=== PATIENT | male | born 1945 | race Caucasian/White ===

== ENCOUNTER 2016-10-13 11:56 | Inpatient (IN) | payer BC ==
--- NOTE | ~2016-10-13 | CN ---
Consultation Report [facility] [address] [place]. [address] NAME: Eli MIKE : 45 STATUS : ADM IN PAT#: [id number] AGE: 71 ADM/REG DATE : 10/13/16 MR#: [id number] REPORT SERV DATE: 10/13/16 DICTATED BY: DATE: REPORT STATUS : Draft TRANSCRIBED BY: MODL DATE: 10/13/16 NEUROLOGY CONSULTATION DATE OF CONSULTATION: REASON FOR CONSULT: Stroke. HISTORY OF PRESENT ILLNESS: This is a 71-year-old male who presented to [facility] secondary to right-sided weakness and stroke with the patient's family reported to the nursing staff that the patient was last noted to be normal on 10/12/2016, prior to going to bed. The patient's found the patient wake up with aphasia as well as right-sided weakness. The patient was subsequently brought to the hospital secondary to unclear time of onset, possibly greater than 4.5 hours. TPA was not offered. The patient was noted to have no significant changes in mental status or functional status after hospital admission as well as the patient noted to have failed dysphagia screening in the emergency room. The patient was noted to have a history of prior stroke in 2013. The patient was seen while in the hospital by fire management technician with concern for possible atypical atrial flutter. At that time the patient was on anticoagulation with Coumadin. The patient, prior to the hospitalization, was not noted to have any history of fever, chills, nausea, vomiting, chest pain, or shortness of breath. PAST MEDICAL HISTORY: The patient's past medical history is significant for hypertension, hypercholesterolemia, diabetes, stroke, ulcers, and gout with the patient at one point was noted to be on Coumadin anticoagulation for unclear reason but possibly for atypical atrial flutter. It is unclear when patient stopped the Coumadin. ALLERGIES: THE PATIENT REPORTS NO KNOWN DRUG ALLERGIES. HOME MEDICATIONS: The patient's home medications consist of aspirin; Lipitor; Coreg; vitamin D3; Lasix; lisinopril; Cozaar; metformin; potassium; and vitamin E. FAMILY HISTORY: No history of coronary artery disease was otherwise reported. SOCIAL HISTORY: The patient, in 2013, was noted to have continued tobacco usage. It is unclear whether or not the patient continues to smoke right now. No reports of alcohol or illicit drug usage was noted. REVIEW OF SYSTEMS: Unfortunately is unable to be obtained secondary to the patient's current aphasic state. PHYSICAL EXAMINATION: VITAL SIGNS: The patient, since the hospitalization, was noted to have vital signs with T- max of 97.2, heart rate of 84 to 90, respirations of 14, and blood pressure of 162 to 168 over 72 to 90. Consultation Report [place] [id number] [place]. [address] NAME: Eli MIKE : 45 STATUS : ADM IN [facility]#: [id number] AGE: 71 ADM/REG DATE : 10/13/16 MR#: [id number] REPORT SERV DATE: 10/13/16 DICTATED BY: DATE: REPORT STATUS : Draft TRANSCRIBED BY: MODL DATE: 10/13/16 GENERAL: The patient is well developed, well nourished, in no acute distress. CARDIOVASCULAR: Regular rate and rhythm. No carotid bruits were otherwise auscultated. PULMONARY: Cross breath sounds were noted with the patient noted to have mild wheezing during the evaluation in bilateral lung restrepo. NEUROLOGICAL: Generally, the patient is alert. The patient was noted to be nonverbal. The patient will follow commands with visual cue but is unable to otherwise follow commands with verbal stimulation, was noted to have concern of consists of expressive as well as receptive aphasia, was noted to be mute on evaluation. Cranial nerves 2 through 12, pupils equal, round, and reactive to light. Left gaze preference was noted at the time of evaluation with some horizontal eye movement on oculocephalic maneuver. The patient demonstrated blink-to- threat response in stimulation presented to the left visual field but not to stimulation presented to the right visual field. The patient, in addition, was also noted to have right sided facial weakness with decreased nasolabial fold. The patient does demonstrate a flaccid right upper extremity with no spontaneous movement. Was noted to have spontaneous and purposeful movement in the left upper extremity. The patient is able to maintain left upper extremity against gravity for 10 seconds and is able to maintain left lower extremity against gravity for 5 seconds. The patient demonstrated no spontaneous movement in the right lower extremity. The patient was noted to have extensor response to noxious stimulation in the right upper extremity. The patient does demonstrate mild increased tone in the right upper extremity as well as hyperreflexia with 3+ reflex in the right upper extremity and 2+ in bilateral lower extremity. Upgoing toe on the left plantar reflex as well; 2+ reflex in the left upper extremity at the time of evaluation. Cerebellar examination and gait was unable to be evaluated secondary to the patient's difficulty following commands as well as weakness. LABORATORY STUDY: Demonstrates sodium 140, potassium 3.8, chloride 105, bicarb 31, BUN of 21, creatinine 1.20, glucose 159, and calcium of 9.89. White blood cell count of 11.7, hemoglobin of 13.9, hematocrit of 41.4, and platelet count of 225. CT scan of the brain demonstrated subtle signs of left MCA stroke with decreased humphries-white differentiation as well as increased hypoattenuation in the left MCA territory. IMPRESSION: Left-sided hemiplegia as well as aphasia. NIH stroke scale of 21. The patient was found by family members this morning with the symptoms along with the patient last noted to be normal occurring on 10/12/2016, prior to going to bed. Alteplase was not offered secondary to time of onset greater than 4.5 hours as well as mildly unclear time of onset. MRI of the brain without contrast will be obtained as well as stroke workup. We will obtain PT, OT, and Speech Therapy secondary to the patient's failed dysphagia screening. We will also place the patient on n.p.o. until speech therapy evaluation. Per medical, question of history of atrial flutter and may have to consider resuming anticoagulation after hospitalization. RECOMMENDATIONS: 1. N.p.o. 2. Aspirin per rectal for now. 3. PT/OT. Consultation Report [address] [place]. [address] NAME: RASHIDEli Darin : 45 STATUS : ADM IN [facility]#: [id number] AGE: 71 ADM/REG DATE : 10/13/16 MR#: [id number] REPORT SERV DATE: 10/13/16 DICTATED BY: DATE: REPORT STATUS : Draft TRANSCRIBED BY: MODL DATE: 10/13/16 4. MRI of the brain without contrast. 5. Speech Therapy consult. 6. Echocardiogram. 7. MRA of the head and neck. 8. We will also obtain fasting lipid panel and hemoglobin A1c. 9. May consider Cardiology reevaluation. With the patient's history of atrial flutter, may have to consider anticoagulation in the future. [facility]/MODL Mario Meeks MD / [id number] CC: Elizabeth Gutierrez M.D.
--- NOTE | ~2016-10-13 | HP ---
History And Physical [place] [address] [facility] [place]. [address] NAME: Eli MIKE : 45 STATUS : ADM IN [facility]#: [id number] AGE: 71 ADM/REG DATE : 10/13/16 MR#: [id number] REPORT SERV DATE: 10/13/16 DICTATED BY: ELYSSA CHAPPELL DATE: 10/13/16 REPORT STATUS : Draft TRANSCRIBED BY: MODL DATE: 10/13/16 DATE OF ADMISSION: 10/13/2016 IDENTIFYING DATA: A 71-year-old white male whose PCP is Dr. William Chou, software validation engineer is Dr. Amarjit Merchant. CHIEF COMPLAINT: Stroke. HISTORY OF PRESENT ILLNESS: This history of present illness is obtained by talking with the ER staff, specifically Dr. Sánchez, also with the patient's and their three children at the bedside. The patient was not able to speak at all, review of [employer] and Dr. Jerry's Smooth Move as well and the current ER paper chart. The patient's states, he was normal last night when he went to bed around 10:00 p.m., around 08:00 a.m. this morning, she found him on the floor next to the couch, where he had slept. She states, he usually sleeps there. He could move his right side and he has not spoken since she found him. They brought him to the emergency room at 1045 hours today. I was contacted at 1220 hours and I was asked to see him and I came directly down to see him. The patient has had no prior strokes. The family states that, he was on Eliquis as an anticoagulant until 05/2016, because it was costing him 400 dollars a month. They described that his doctors recommended he go to Coumadin, but he refused because he did not want to go to have the lab work done. He is normally very active, he just mowed his lawn. Family does describe that he has some spells occasionally when he gets suddenly nauseated, diaphoretic, and he will pass out, that will happen every once a while over the last few years, but he will awaken quickly, and will be right back to his usual baseline. REVIEW OF SYSTEMS: On review of systems, he has a chronic stable cough. He has had nausea eight days ago. He has had diarrhea for the last two days. He has occasional nocturia. No history of fever, chest pain, shortness of breath, abdominal pain, vomiting, rectal bleeding, melena, dysuria, urinary hesitancy, peripheral edema, rash, headaches, anorexia, or weight changes. PAST MEDICAL HISTORY: No known drug allergies. They denied any history of asthma, seizure, peptic ulcer, biliary tract disease, liver disease, chronic kidney disease, kidney stones, thyroid disease, cancer, or sleep apnea. He has coronary disease and he underwent coronary artery bypass grafting in 2013. The last echo that I could find for the patient was on 06/11/2016 showing left atrial size 3.9 cm, left ventricular ejection fraction 35% to 40%, moderate aortic and tricuspid insufficiency. He has a history of hypertension. He has had diabetes for about three years. He had a history of claudication. He has a history of COPD. HOME MEDICATIONS: Aspirin 81 mg daily, Lipitor 40 mg daily, Coreg 25 mg b.i.d., vitamin D History And Physical [address] [address] NAME: Eli MIKE : 45 STATUS : ADM IN [facility]#: [id number] AGE: 71 ADM/REG DATE : 10/13/16 MR#: [id number] REPORT SERV DATE: 10/13/16 DICTATED BY: ELYSSA CHAPPELL DATE: 10/13/16 REPORT STATUS : Draft TRANSCRIBED BY: LUCA DATE: 10/13/16 5000 units daily, Lasix 40 mg daily, lisinopril 40 mg b.i.d., Cozaar 100 mg daily, metformin 500 mg daily, KCl 20 mEq daily, vitamin E 1000 units daily. SURGICAL HISTORY: Coronary bypass is his only surgical history. SOCIAL HISTORY: He smokes a pack per day still. No significant alcohol intake history. He is . 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 He walks without any assistive device. Still mows the lawn. FAMILY HISTORY: Mother had heart disease and rheumatoid arthritis. Father with heart disease. Siblings also with heart disease. DIAGNOSTIC DATA: Chest x-ray reveals hyperexpanded lung restrepo, consider it is a portable chest film. He has cardiomegaly, evidence of previous sternotomy. Otherwise the lung restrepo and bony structures are normal per my interpretation. EKG done today at 1055 hours reveals atrial fibrillation with controlled ventricular response rate. The patient has inverted T-waves in II, III, and AVF. Echocardiogram of 06/11/2016 as mentioned above. At that time, his left atrium of 3.9 cm, left ventricular ejection fraction between 30% and 40%. He had septal hypokinesis, mild apical-septal akinesis, moderate aortic regurgitation, mild mitral regurgitation, moderate tricuspid regurgitation, thickened aortic valve, but without any stenosis. Sodium 140, potassium 3.8, chloride 105, CO2 is 31, BUN 21, creatinine 1.2, glucose 159, calcium 9.8. White count 11.7, hemoglobin is 13.9, platelets 225,000. Protime is 15.1, INR 1.2, PTT is 30.2. CT scan of the brain without contrast read by the radiologist to show early left MCA territory infarction in the left temporal area with no mass or hemorrhage PHYSICAL EXAMINATION: VITAL SIGNS: Temp is 98, pulse 80, respirations 16, blood pressure 160/92, O2 saturation is currently 95% on 2 L. GENERAL: A well-developed, older male, who appears lethargic. HEENT: Head is atraumatic. His eyes are predominantly to the left, I never did see him move past the midline to the right. Pupils equal, round, and reactive to light. The sclera are normal. Ear canals and TMs unremarkable with No inflammatory changes noted on the external ears. Nose, noninflamed externally. Septum midline. Nares patent. Mouth is difficult to examine because he barely will open it, but appears moist. I could not really see if he has a gag. It sounds like he has difficulty clearing his oral secretions currently. NECK: Supple. No lymph node or thyroid enlargement. The carotids have good pulses. No bruits. LUNGS: Good clear air flow bilaterally with normal respiratory effort. HEART: Irregularly irregular without gallop, click, murmur, or rub. ABDOMEN: Bowel sounds are positive. Soft, nondistended, no tenderness elicited. No mass. No organomegaly. No bruits. EXTREMITIES: Warm, good pulses. No clubbing, no cyanosis, no edema. No actively inflamed skin or joints. NEUROLOGIC: He is lethargic with verbal and tactile stimulation. He will transiently open History And Physical [place] [address] [place]. [address] NAME: Eli MIKE : 45 STATUS : ADM IN PAT#: [id number] AGE: 71 ADM/REG DATE : 10/13/16 MR#: [id number] REPORT SERV DATE: 10/13/16 DICTATED BY: ELYSSA CHAPPELL DATE: 10/13/16 REPORT STATUS : Draft TRANSCRIBED BY: MODL DATE: 10/13/16 his eyes. He did follow commands to take deep breath and a squeeze with his left hand and moved his left foot by plantar flexion and dorsiflexion when I asked him to. He was not able to follow simple commands when I asked him to raise his left thumb nor did he follow any commands when I asked him to open his mouth or stick out his tongue. His gaze is preferentially to the left. He appears to have a right homonymous hemianopsia as he has no reaction to a threat maneuver on the right side, but does blink on the left side. His motor strength on the left arm and left leg, 4/5. Right side, there is increased tone in the right arm and leg. He does not have any spontaneous movement in his right arm or right leg that I can see. He has a positive Babinski on the right side. There is no clonus. Cranial nerves are mostly normal other than the predominant eye gaze to the left and apparent homonymous hemianopia on the right side. ASSESSMENT: 1. Acute ischemic left temporal/middle cerebral artery stroke likely embolic with current dense right hemiplegia, apparent right homonymous hemianopsia, aphagia, suspected dysphagia, and decreased level of consciousness. 2. Chronic atrial fibrillation, off the Eliquis since 05/2016 because of the cost. 3. Inferior ischemic changes on his EKG with T-wave inversions. 4. Leukocytosis. 5. Diabetes mellitus type 2 for three years. 6. Hypertension. 7. History of chronic obstructive pulmonary disease. 8. History of peripheral arterial disease with claudication. PLAN: Admit the patient to the stroke unit. He is far too late to be a candidate for tPA. MRI, MRA of the brain, MRA of the neck. Get an echocardiogram. We will consult Neurology. We will ask PT/OT and Speech to see him. We are going to take the Valderrama catheter out that the ER placed, because I want to reduce his risk of infection. We will check a series of cardiac enzymes. His and three children are updated at bedside at this time. I told him it is likely that if he does not improve with his swallowing ability in the near future, he may need a feeding tube placed and long-term rehab. ALOK/LUCA Elyssa Chappell M.D. / [id number] CC: Thierry Henderson M.D.
--- NOTE | ~2016-10-13 | DS ---
Discharge Summary [facility] [address] [facility]. [address] NAME: Eli MIKE : 45 STATUS : DIS IN PAT#: [id number] AGE: 71 ADM/REG DATE : 10/13/16 MR#: [id number] REPORT SERV DATE: 10/16/16 DICTATED BY: ELYSSA PATEL DATE: 10/15/16 REPORT STATUS : Draft TRANSCRIBED BY: MODL DATE: 10/15/16 ADMISSION DATE: 10/13/2016 DISCHARGE DATE: 10/15/2016 PCP: Dr. William Chou. MILL TENDER SECOND OPERATOR: Dr. Merchant. CONSULTING PHYSICIAN: Dr. Aneudy Daniel for Cardiology, Dr. Daniel Meeks for Neurology. FINAL DIAGNOSES: 1. Acute left middle cerebral artery CVA with dense right hemiplegia. 2. Atrial fibrillation with sinus pauses. 3. Ischemic cardiomyopathy with ejection fraction of 30% to 40%. 4. Coronary artery disease with history of coronary artery bypass grafting. 5. Peripheral artery disease with history of claudication. 6. Hypertension. 7. Diabetes. 8. Chronic obstructive pulmonary disease. 9. Noncompliance. 10.Tobacco abuse. DIAGNOSTIC EXAM: CAT scan of the brain without showing early left MCA territory infarct with low density and loss of san-white junction in some occasions, no current hemorrhage or significant mass effect currently. Chest x-ray showing stable cardiomegaly with prior CABG, no acute process. HOSPITAL COURSE: Please refer to the H and P done by Dr. Chappell dated on 10/13/2016. Briefly, this is a 71-year-old male, who comes in for inability to speak. The patient has a history of atrial fibrillation and is suppose to be on anticoagulation, but does not want to take it. The patient was found on the day of admission, could not move his right side and unable to speak the patient was then brought to the emergency room and got a CAT scan, which shows the above findings. We got Neurology involved and also Cardiology as the telemetry was showing sinus pauses and sometimes rapid atrial fibrillation. The patient was placed on Cardizem drip and given aspirin per rectum. We got PT involved and also Speech and Speech noted that the patient is a very high risk for aspiration and recommended alternative means of nutrition. I discussed this with the family and the family said that the patient does not want to live like this. They said that the patient is a DO NOT RESUSCITATE/DO NOT INTUBATE, no PEG feeding and they would just make him eat and take his medications through the mouth. We got hospice involved [facility] and they are willing to follow up the patient when they go home today. The patient will be discharged to hospice this afternoon. Further management in the care of hospice. RLY/MODL Discharge Summary [address] [address] NAME: Eli MIKE Darin : 45 STATUS : DIS IN PAT#: [id number] AGE: 71 ADM/REG DATE : 10/13/16 MR#: [id number] REPORT SERV DATE: 10/16/16 DICTATED BY: ELYSSA PATEL. DATE: 10/15/16 REPORT STATUS : Draft TRANSCRIBED BY: LUCA DATE: 10/15/16 Elyssa Patel M.D. / [id number] CC: Thierry Stone SCOTT
--- NOTE | ~2016-10-13 | CN ---
Consultation Report [facility] [address] [place]. [address] NAME: Eli MIKE : 45 STATUS : ADM [facility]#: [id number] AGE: 71 ADM/REG DATE : 10/13/16 MR#: [id number] REPORT SERV DATE: 10/14/16 DICTATED BY: ANEUDY GAMA DATE: 10/13/16 REPORT STATUS : Draft TRANSCRIBED BY: MODL DATE: 10/13/16 CARDIOVASCULAR CONSULTATION DATE OF CONSULTATION: 10/13/2016 INDICATION: Chronic atrial fibrillation, stroke, and bradycardia. HISTORY OF PRESENT ILLNESS: Mr. Mike is a 71-year-old patient of my partner, Dr. Amarjit Merchant in [place]. He has a longstanding history of coronary artery disease with previous bypass surgery and an ischemic cardiomyopathy. EF by variable measurements has been between 30% and 40%. Echocardiogram demonstrated EF 30% recently. The patient was seen in July of [address] Merchant for discussion of a prophylactic defibrillator. The patient declined defibrillator placement at that time. In addition, the patient had been noncompliant with his Eliquis medication and presented to clinic with aspirin alone. He was placed on Coumadin but again was noncompliant. He presents to [facility] with a large stroke. Currently right hemiplegia and severe expressive aphasia. He was noted to be in atrial fibrillation on shelter monitor with several seconds up to one 6 second pause noted. PAST MEDICAL HISTORY: 1. Coronary artery disease, status post coronary artery bypass grafting. 2. Type 2 diabetes. 3. Hypertension. 4. Hypercholesterolemia. 5. Paroxysmal atrial fibrillation. 6. Ischemic cardiomyopathy. ALLERGIES: NO KNOWN DRUG ALLERGIES. MEDICATIONS: At home include aspirin 81 mg daily, Lipitor 40 mg daily, Coreg 25 mg twice a day, vitamin D, Lasix 40 mg daily, Prinivil 40 mg a day, Cozaar 100 mg daily, metformin, potassium, and vitamin E. SOCIAL HISTORY: He is a former smoker. He does not drink alcohol. FAMILY HISTORY: There is no family history of early coronary artery disease. REVIEW OF SYSTEMS: A complete review of systems was obtained, which is negative in detail except as mentioned above in the HPI. PHYSICAL EXAMINATION: VITAL SIGNS: Blood pressure 130/70, heart rate of 70, respiratory rate of 14. Consultation Report [facility] [address] [place]. [address] NAME: Eli MIKE : 45 STATUS : ADM IN PAT#: [id number] AGE: 71 ADM/REG DATE : 10/13/16 MR#: [id number] REPORT SERV DATE: 10/14/16 DICTATED BY: ANEUDY GAMA DATE: 10/13/16 REPORT STATUS : Draft TRANSCRIBED BY: LUCA DATE: 10/13/16 GENERAL: Comfortable in no acute distress. HEENT: Anicteric. No xanthelasma. Lips without cyanosis. NECK: No JVD. Carotids 2+ and symmetric. No carotid bruits. LUNGS: CTA bilaterally. No wheezes or rhonchi. No accessory muscle use. COR: Irregularly irregular. Normal S1, S2. ABD: Soft, nontender, nondistended. Normal bowel sounds. No abdominal bruits. EXT: No clubbing, cyanosis or edema 2+ and symmetric distal pulses. SKIN: Warm. Dry. No venous stasis changes. MS: No kyphosis. NEURO/PSYCH: The patient is somnolent but arousable. An obvious right hemiplegia is noted. No verbal output is noted. No anxiety or depression. EKG: A 12-lead EKG shows atrial fibrillation, rate of 76 beats per minute. Left ventricular hypertrophy with strain pattern is noted. Telemetry strips show up to a 6 second pause noted. IMPRESSION: This is a 71-year-old man with chronic atrial fibrillation, noncompliant with both Eliquis and Coumadin anticoagulation who presents with a large stroke. He was considered for a prophylactic defibrillator as an outpatient but declined. He now presents after a large stroke. I think anticoagulation with Coumadin or a novel oral anticoagulant would be appropriate. He did have evidence of a pause on telemetry. He is in chronic atrial fibrillation. He was on Coreg 25 mg twice a day and was taken off this medication. I am not sure about the most appropriate level of aggressiveness with this patient who has been noncompliant and refusing therapies in the past. I am not sure whether a defibrillator or pacemaker is appropriate given his overall prognosis after his stroke. For now, I have recommended discontinuing his Coreg. We will observe him on shelter monitor. Further discussions with the patient and especially the patient's family regarding DNR status and level of care. CORNELL/LUCA Aneuyd Gama M.D. / [id number] CC: Elizabeth Gutierrez M.D.
[2016-10-13 11:01] LABS: BASOPHILS 0.3 %; BASOPHILS ABSOLUTE 0.03 10/3/uL (0.0-0.16); EOSINOPHILS 1.4 %; EOSINOPHILS ABSOLUTE 0.16 10/3/uL (0.0-0.53); HEMATOCRIT 41.4 % (40.0-51.0); HEMOGLOBIN 13.9 g/dL (13.6-17.8); IMMATURE GRANULOCYTES 0.3 %; IMMATURE GRANULOCYTES ABSOLUTE 0.04 10/3/uL (0.0-0.11); LYMPHOCYTES ABSOLUTE 1.76 10/3/uL (0.67-4.30); MEAN CORPUS HGB CONC 33.6 g/dL (32.0-36.0); MEAN CORPUSCULAR HEMOGLOB 31.4 pg (26.0-34.0); MEAN PLATELET VOLUME 9.7 fL (9.2-13.0); MONOCYTES 4.9 %; MONOCYTES ABSOLUTE 0.58 10/3/uL (0.21-1.20); NEUTROPHILS 78.1 %; NEUTROPHILS ABSOLUTE 9.16 10/3/uL (2.02-8.40); PLATELET COUNT 225 10/3/uL (150-400); RBC DISTRIBUTION WIDTH 14.3 % (12.0-16.0); RED CELL COUNT 4.43 10/6/uL (4.7-6.1); WHITE BLOOD CELLS 11.7 10/3/uL (4.5-10.5)
[2016-10-13 11:02] LABS: ER CBC TAT 0 Hrs 03 MinsNP; MANUAL DIFF NO %; MEAN CORPUSCULAR VOLUME 93.5 fL (80-100)
[2016-10-13 11:09] LABS: INTERNATIONAL NORMAL RATI 1.2 UNITS (-); PARTIAL THROMBO TIME 30.2 SEC (22.5-37.2)
[2016-10-13 11:10] LABS: PROTIME (NOT ORD) 15.1 SEC (12.0-14.5)
[2016-10-13 11:13] LABS: BUN (BLOOD UREA NITROGEN) 21 MG/DL (6-23); CALCIUM, SERUM 9.8 MG/DL (8.5-10.4); CHLORIDE, SERUM 105 MMOL/L (96-112); CO2 (CARBON DIOXIDE) 31 MMOL/L (24-34); GFR AFRICAN AMERICAN 70 ML/MIN (>=60); GFR NON AFRICAN AMERICAN 60 ML/MIN (>=60); GLUCOSE, SERUM 159 MG/DL (60-99); POTASSIUM, SERUM 3.8 MMOL/L (3.5-5.3); SODIUM, SERUM 140 MMOL/L (135-148)
[~2016-10-13 11:56] MED LIST: ASAB PO; COREG12 PO; COUMADIN3 MG PO; LIPITOR10 PO; LIPITOR40 PO; LISINOPRIL40 MG PO; LOP25 PO; NITROSTAT0.4 MG SL; PACERONE200 MG PO; PERCOCET1 TA4 PO; PRIN20 PO; SPIRIVA INH; T PO; VITC500 PO
[2016-10-13] MEDS ORDERED: COREG25 PO (12:05)
[2016-10-13] MEDS ORDERED: GLUCPH PO (12:05)
[2016-10-13] MEDS ORDERED: COZAAR100 MG PO (12:06)
[2016-10-13] MEDS ORDERED: L40 PO (12:06)
[2016-10-13] MEDS ORDERED: LISINOPRIL40 MG PO (12:07)
[2016-10-13] MEDS ORDERED: LIPITOR40 PO (12:07)
[2016-10-13] MEDS ORDERED: ASAB PO (12:08)
[2016-10-13] MEDS ORDERED: VITE1000 PO (12:08)
[2016-10-13] MEDS ORDERED: KLOR-CON M2020 MEQ PO (12:09)
[2016-10-13] MEDS ORDERED: VITAMIN D31000 UNIT PO (12:09)
[2016-10-13 15:39] LABS: ALBUMIN 3.9 G/DL (3.5-5.0); ALKALINE PHOSPHATASE 67 U/L (45-117); CHOL/HDL RATIO(NOT ORDER) 2.7 (0-5); CHOLESTEROL 132 MG/DL (< 200); CK-MB 1.4 NG/ML; CPK 83 U/L (0-200); DIRECT BILIRUBIN 0.2 MG/DL (0.0-0.4); HDL CHOLESTEROL 49 MG/DL (> 39); INDIRECT BILIRUBIN(NOT ORDER) 0.6 MG/DL (0.1-0.9); LDL CHOLESTEROL 67 MG/DL (< 130); NON-HDL CHOLESTEROL 83 MG/DL (< 160); SGOT(AST) 12 U/L (5-40); SGPT(ALT) 19 U/L (5-65); TOTAL BILIRUBIN 0.8 MG/DL (0-1.2); TOTAL PROTEIN 6.8 G/DL (6.0-8.5); TRIGLYCERIDE 80 MG/DL (< 150); TROPONIN I <0.02 NG/ML (<0.05)
[2016-10-13 21:44] LABS: BUN (BLOOD UREA NITROGEN) 18 MG/DL (6-23); CALCIUM, SERUM 9.4 MG/DL (8.5-10.4); CHLORIDE, SERUM 104 MMOL/L (96-112); CREATININE 0.91 MG/DL (0.70-1.30); GFR AFRICAN AMERICAN 98 ML/MIN (>=60); GFR NON AFRICAN AMERICAN 84 ML/MIN (>=60); GLUCOSE, SERUM 151 MG/DL (60-99); SODIUM, SERUM 140 MMOL/L (135-148)
[2016-10-13 21:45] LABS: CO2 (CARBON DIOXIDE) 24 MMOL/L (24-34)
[2016-10-13 22:03] LABS: CPK 79 U/L (0-200); TROPONIN I <0.02 NG/ML (<0.05)
[2016-10-13 22:04] LABS: CK-MB 1.1 NG/ML
[2016-10-14 05:48] LABS: ASCORBIC ACID (UR NOT ORDER) NEG (NEG); BILIRUBIN, URINE NEGATIVE (NEG); KETONE, URINE TRACE MG/DL (NEG); LEUKOCYTE ESTERASE(NOT OR NEG (NEG); WBC (NOT ORDERED) (RFLEX) 4 (0-5)
[2016-10-14 06:41] LABS: BASOPHILS 0.1 %; BASOPHILS ABSOLUTE 0.02 10/3/uL (0.0-0.16); EOSINOPHILS 0.5 %; EOSINOPHILS ABSOLUTE 0.07 10/3/uL (0.0-0.53); HEMATOCRIT 38.8 % (40.0-51.0); HEMOGLOBIN 13.1 g/dL (13.6-17.8); IMMATURE GRANULOCYTES 0.2 %; IMMATURE GRANULOCYTES ABSOLUTE 0.03 10/3/uL (0.0-0.11); LYMPHOCYTES 14.1 %; LYMPHOCYTES ABSOLUTE 1.92 10/3/uL (0.67-4.30); MEAN CORPUS HGB CONC 33.8 g/dL (32.0-36.0); MEAN CORPUSCULAR HEMOGLOB 31.3 pg (26.0-34.0); MEAN CORPUSCULAR VOLUME 92.8 fL (80-100); MEAN PLATELET VOLUME 9.8 fL (9.2-13.0); MONOCYTES 8.3 %; MONOCYTES ABSOLUTE 1.13 10/3/uL (0.21-1.20); NEUTROPHILS 76.8 %; NEUTROPHILS ABSOLUTE 10.44 10/3/uL (2.02-8.40); PLATELET COUNT 225 10/3/uL (150-400); RBC DISTRIBUTION WIDTH 14.2 % (12.0-16.0); RED CELL COUNT 4.18 10/6/uL (4.7-6.1); WHITE BLOOD CELLS 13.6 10/3/uL (4.5-10.5)
[2016-10-14 06:47] LABS: BUN (BLOOD UREA NITROGEN) 17 MG/DL (6-23); CALCIUM, SERUM 9.3 MG/DL (8.5-10.4); CHLORIDE, SERUM 105 MMOL/L (96-112); CHOL/HDL RATIO(NOT ORDER) 3.1 (0-5); CHOLESTEROL 136 MG/DL (< 200); CO2 (CARBON DIOXIDE) 25 MMOL/L (24-34); CPK 100 U/L (0-200); CREATININE 0.98 MG/DL (0.70-1.30); GFR AFRICAN AMERICAN 90 ML/MIN (>=60); GFR NON AFRICAN AMERICAN 77 ML/MIN (>=60); GLUCOSE, SERUM 160 MG/DL (60-99); HDL CHOLESTEROL 44 MG/DL (> 39); LDL CHOLESTEROL 70 MG/DL (< 130); MANUAL DIFF NO %; NON-HDL CHOLESTEROL 92 MG/DL (< 160); POTASSIUM, SERUM 3.8 MMOL/L (3.5-5.3); SODIUM, SERUM 141 MMOL/L (135-148); TRIGLYCERIDE 110 MG/DL (< 150); TROPONIN I <0.02 NG/ML (<0.05)
[2016-10-14 15:47] LABS: TROPONIN I <0.02 NG/ML (<0.05)
[2016-10-14 15:50] LABS: CK-MB 0.9 NG/ML; CPK 126 U/L (0-200)
[2016-10-15 06:00] LABS: BASOPHILS 0 %; EOSINOPHILS 0 %; HEMATOCRIT 39.5 % (40.0-51.0); HEMOGLOBIN 13.4 g/dL (13.6-17.8); IMMATURE GRANULOCYTES 0.3 %; IMMATURE GRANULOCYTES ABSOLUTE 0.04 10/3/uL (0.0-0.11); LYMPHOCYTES 5.5 %; LYMPHOCYTES ABSOLUTE 0.78 10/3/uL (0.67-4.30); MEAN CORPUS HGB CONC 33.9 g/dL (32.0-36.0); MEAN CORPUSCULAR HEMOGLOB 31.3 pg (26.0-34.0); MEAN CORPUSCULAR VOLUME 92.3 fL (80-100); MEAN PLATELET VOLUME 10.1 fL (9.2-13.0); MONOCYTES 7.6 %; MONOCYTES ABSOLUTE 1.09 10/3/uL (0.21-1.20); NEUTROPHILS 86.6 %; NEUTROPHILS ABSOLUTE 12.39 10/3/uL (2.02-8.40); PLATELET COUNT 235 10/3/uL (150-400); RBC DISTRIBUTION WIDTH 14.4 % (12.0-16.0); RED CELL COUNT 4.28 10/6/uL (4.7-6.1); WHITE BLOOD CELLS 14.3 10/3/uL (4.5-10.5)
[2016-10-15 06:05] LABS: MANUAL DIFF NO %
== END 2016-10-15 18:09 | DRG 65 ==
LOC: ER 11:56 → 2SO 12:59
PROVIDERS: Emergency Medicine; Hospitalist; Internal Medicine; Nurse Practitioner Family
DX: I63.442 Cerebral infarction due to embolism of left cerebellar artery (principal); I48.92 Unspecified atrial flutter; R47.01 Aphasia; G81.91 Hemiplegia, unspecified affecting right dominant side; I48.2 Chronic atrial fibrillation; R13.10 Dysphagia, unspecified; I10 Essential (primary) hypertension; H53.461 Homonymous bilateral field defects, right side; I25.5 Ischemic cardiomyopathy; E11.9 Type 2 diabetes mellitus without complications; I25.10 Atherosclerotic heart disease of native coronary artery without angina pectoris; Z51.5 Encounter for palliative care; E78.00 Pure hypercholesterolemia, unspecified; M10.9 Gout, unspecified; R00.1 Bradycardia, unspecified; I70.219 Atherosclerosis of native arteries of extremities with intermittent claudication, unspecified extremity; F17.210 Nicotine dependence, cigarettes, uncomplicated; I35.1 Nonrheumatic aortic (valve) insufficiency; I36.1 Nonrheumatic tricuspid (valve) insufficiency; I34.0 Nonrheumatic mitral (valve) insufficiency; Z66 Do not resuscitate; Z86.73 Personal history of transient ischemic attack (TIA), and cerebral infarction without residual deficits; Z87.891 Personal history of nicotine dependence; Z95.1 Presence of aortocoronary bypass graft; Z82.49 Family history of ischemic heart disease and other diseases of the circulatory system; Z82.61 Family history of arthritis; Z91.19 Patient's noncompliance with other medical treatment and regimen
CPT/HCPCS: 36600; 70450; 71010; 80048; 80061; 80076; 81001; 82330; 82550; 82553; 82803; 82947; 82962; 83036; 83735; 84132; 84295; 84443; 84484; 85014; 85025; 85610; 85730; 92523-GN; 92610-GN; 93005; 96374; 97161-GP; 97166-GO; 97530-GP; 99285; A9270-GY; J0610; J3475